=== PATIENT | male | born 2000 | race Caucasian/White ===

== ENCOUNTER 2021-05-12 21:54 | Emergency (ER) | payer OTHER ==
[~2021-05-12] VITALS: Ht 180 cm; Wt 104.0 kg
--- OUTSIDE RECORDS SUMMARY | 2021-05-12 22:00 | XMS REPORT | Encounter Summary ---
Author Author [facility] Organization [facility] Address Unknown Phone Unavailable Care Team Providers Care Mine Technician Name Role Phone Unknown, Unknown Md PCP Unavailable Reason for Referral * Laboratory Services (Routine) Referred By Contact Referred To Contact Status Reason Specialty Diagnoses / Procedures Tegan Betancourt MD [address] [place] [address] [facility] [address], [address] [place] [address] Authorized Lab Diagnoses Stem cell donor P rocedures HLA CLASS 1A 1B 1C AND 2 PHENO HIGH RES Electronically signed by Tegan Betancourt MD at Encounter Details Care Team Description Date Type Department Amy Samayoa RN Stem cell donor (Primary Dx) 03/30/2021 Orders Only [facility] and Mar[facility]: [facility] [address], [address] [place] [id number] Social History Date Tobacco Use Types Packs/Day Years Used Never Assessed Sex Assigned at Date Recorded Not on file documented as of this encounter Progress Notes * Amy Samayoa RN - 03/30/2021 4:32 PM CDT Potential donor was contacted and counseled on methods of HLA typing which inclu de both buccal swabs and blood draws. Reviewed with potential donor that if the y are selected as a donor, an evaluation which includes confirmatory typing, rou prudence labs, viral panel, chest x-ray and ekg as well as a history and physical an d consent. Educated the potential donor on the procedures for both peripheral s tem cell as well as bone marrow harvest donation. Reviewed donor's overall heal th and there are no issues to proceeding with preliminary HLA typing. The cris berrios donor was given time to ask questions and understood that they have the opt ion to decline being a donor. documented in this encounter Plan of Treatment Order Schedule Name Type Priority Associated Diag noses Expected: 03/30/2021 (Approximate), Expi res: 03/30/2022 HLA CLASS 1A 1B 1C AND 2 Blood Bank Routine Stem cell donor PHENO HIGH RES documented as of this encounter Visit Diagnoses Diagnosis Stem cell donor - Primary documented in this encounter
--- OUTSIDE RECORDS SUMMARY | 2021-05-12 22:00 | XMS REPORT | Encounter Summary ---
Author Author [facility] Organization [facility] Address Unknown Phone Unavailable Care Team Providers Care Oral Pathologist Name Role Phone Unknown, Unknown Md PCP Unavailable Encounter Details Care Team Description Date Type Department Amauri Yancey, DO [address] [place] [address] Unspecified donor, stem cells 04/03/2021 Hospital Laboratory: [facility] [address], [address] [place] [phone] Social History Date Tobacco Use Types Packs/Day Years Used Never Assessed Sex Assigned at Date Recorded Not on file documented as of this encounter Discharge Disposition Code Departure Means Destination Disposition Home Home or Self Care documented in this encounter Plan of Treatment Not on filedocumented as of this encounter Procedures Comments Procedure Name Priority Date/Time Associated Diag nosis HC HLA CLASS I TYPING 04/03/2021 Unspecified don or, stem COMPLETE 12:00 PM CDT cells documented in this encounter Results * HLA CLASS 1A 1B 1C AND 2 PHENO HIGH RES (04/03/2021 12:00 PM CDT) HLA Class 1A 1B Report Available in Epic REFERENCE LA B 1C and 2 Pheno TEST PERFORMED BY [facility] [employer] Specimen Narrative Performed At This result has an attachment that is n ot available. Performing Organization Address City/State/ZIP Code [place] Number REFERENCE LAB REFERENCE LAB See results for address. documented in this encounter Visit Diagnoses Diagnosis Unspecified donor, stem cells documented in this encounter
[2021-05-12] MEDS ORDERED: NS IV 1000 ML 1,000 ML IV STA (22:49)
[2021-05-12 22:56] LABS: BILIRUBIN,URINE NEGATIVE (NEGATIVE); CLARITY,URINE CLEAR; COLOR,URINE YELLOW; GLUCOSE, URINE (UA) NEGATIVE (NEGATIVE); KETONES,URINE NEGATIVE (NEGATIVE); LEUKOCYTE ESTERASE ,URINE NEGATIVE (NEGATIVE); NITRITE,URINE NEGATIVE (NEGATIVE); PH,URINE 5.5 (5-9); PROTEIN,URINE NEGATIVE (NEGATIVE)
[2021-05-12] MEDS ORDERED: HOLD METFORMIN - RECEIVED CONTRAST 20 ML VIAL IV SCH (23:00)
[2021-05-12] MEDS ORDERED: NS 100 ML (IVPB) BAG IV ONE (23:00)
[2021-05-12] MEDS ORDERED: IOHEXOL 350 MG/ML 100 ML (OMNIPAQUE 350) VIAL IV ONE (23:00)
[2021-05-12 23:01] LABS: BACTERIA,URINE NEGATIVE /HPF; WBC,URINE RARE /HPF
[2021-05-12 23:08] LABS: HEMATOCRIT 44 % (40-54); HEMOGLOBIN 14.8 g/dL (13.3-17.7); MEAN CORPUSCULAR HEMOGLOBIN 29 pg (25-34); MEAN CORPUSCULAR HGB CONC 34 g/dL (32-36); MEAN CORPUSCULAR VOLUME 87 fL (80-99); MEAN PLATELET VOLUME 9.8 fL (9.0-12.2); PLATELET COUNT 306 10^3/uL (130-400); WHITE BLOOD COUNT 9.9 10^3/uL (4.3-11.0)
[2021-05-12 23:09] LABS: BASOPHILS % (AUTO) 0 % (0-10); EOSINOPHILS # (AUTO) 0.4 10^3/uL (0.0-0.3); EOSINOPHILS % (AUTO) 4 % (0-10); LYMPHOCYTES # (AUTO) 2.8 X 10^3 (1.0-4.0); LYMPHOCYTES % (AUTO) 28 % (12-44); MONOCYTES # (AUTO) 1.1 X 10^3 (0.0-1.0); MONOCYTES % (AUTO) 12 % (0-12); NEUTROPHILS # (AUTO) 5.5 X 10^3 (1.8-7.8); NEUTROPHILS % (AUTO) 56 % (42-75)
[2021-05-12 23:28] LABS: CREATININE SERUM 1.08 MG/DL (0.60-1.30); POTASSIUM 3.7 MMOL/L (3.6-5.0)
[2021-05-12 23:29] LABS: ALBUMIN 4.4 GM/DL (3.2-4.5); BILIRUBIN,TOTAL 0.7 MG/DL (0.1-1.0); CALCIUM 9.1 MG/DL (8.5-10.1); TOTAL PROTEIN 7.3 GM/DL (6.4-8.2)
--- NOTE | 2021-05-12 23:54 | ED GI ---
General Chief Complaint: Abdominal/GI Problems Stated Complaint: ABD PAIN Nursing Triage Note: PT REPORTS TO ER WITH C/O LLQ ABD PAIN X4 DAYS. PT STATES THAT PAIN RADIATES FROM LATERAL TO MEDIAL, IS 4/10 AT THIS TIME AND HAS A SHARP QAULITY. PT WAS SEEN AT ANOTHER FACILITY WITH SAME COMPLAINT WITHOUT RELIEF OF SX. Source of Information: Patient History of Present Illness Date Seen by Provider: May 12, 2021 Time Seen by Provider: 23:54 Initial Comments 21-year-old male presenting with complaints of abdominal pain primarily on the left side. Radiates to his middle of the abdomen. He states this is been going on for 4 to 5 days. Initially he was having fever with it but has not had that for a day or 2. He did get evaluated over the weekend at [facility] and [facility]. He states that the advised him that he had diarrhea and it was viral. They did not do a CT scan. Patient was continued to have symptoms and was concerned he had something more going on. He came here for second opinion. He is having watery diarrhea. He states he has nausea but no vomiting. He has had no dizziness, fainting, syncope, chest pain, cough, shortness of breath, pain with urination. Timing/Duration: 4-5 Days Severity/Quality: Sharp Location: Generalized Abdomen (worse in left flank radiating to middle of abdomen) Activities at Onset: None Associated Symptoms: No Back Pain, No Chest Pain, No Diaphoresis; Fever/Chills, Fatigue; No Headache, No Heartburn; Nausea/Vomiting (nausea but no vomiting); No Shortness of Air, No Swelling/Mass in Abdomen, No Syncope Allergies and Home Medications Allergies Coded Allergies: No Known Drug Allergies (Unverified , 05/12/21) Patient Home Medication List Home Medication List Reviewed: Yes Ciprofloxacin HCl (Ciprofloxacin HCl) 500 Mg Tablet, 500 MG PO BID Prescribed by: TIKA ALANIZ on 05/13/21 0018 Hydrocodone/Acetaminophen (Hydrocodone-Acetamin 5-325 mg) 1 Each Tablet, 1 TAB PO Q6H PRN for PAIN-SEVERE (8-10) Prescribed by: TIKA ALANIZ on 05/13/21 0020 Metoclopramide HCl (Metoclopramide HCl) 10 Mg Tablet, 10 MG PO Q6H PRN for NAUSEA/VOMITING Prescribed by: TIKA ALANIZ on 05/13/2117 Metronidazole (Metronidazole) 500 Mg Tablet, 500 MG PO BID Prescribed by: TIKA JOHNSONRT on 05/13/2117 Review of Systems Review of Systems Constitutional: chills, fever (none in last 2 days) EENTM: No Symptoms Reported Respiratory: No Symptoms Reported Cardiovascular: No Symptoms Reported Gastrointestinal: See HPI Genitourinary: Denies Burning, Denies Drainage, Denies Hematuria Musculoskeletal: no symptoms reported Skin: No rash Psychiatric/Neurological: Denies Headache Past Eavclpi-Wpgszg-Ljljst Hx Patient Social History Tobacco Use?: No Smoking Status: Never a Smoker Use of E-Cig and/or Vaping dev: No Substance use?: No Alcohol Use?: Yes Alcohol type: Hard Liquor Alcohol Frequency: Couple times a week Pt feels they are or have been: No Immunizations Up To Date First/Initial COVID19 Vaccinat: February COVID19 Vaccination Michael: COVID19 Vaccine Assistant Nurse Manager: GWENDOLYN Past Medical History Surgeries: No Physical Exam Vital Signs Vital Signs - First Documented 05/12/21 22:47 Temp 37.1 Pulse 88 Resp 16 B/P (MAP) 140/84 (102) Pulse Ox 99 O2 Delivery Room Air Capillary Refill : Less Than 3 Seconds Height/Weight/BMI Height: '" Weight: lbs. oz. kg; 32.00 BMI Method: General Appearance: WD/WN, no apparent distress HEENT: PERRL/EOMI, pharynx normal Neck: non-tender, full range of motion, supple, normal inspection Respiratory: chest non-tender, lungs clear, normal breath sounds, no respiratory distress, no accessory muscle use Cardiovascular: normal peripheral pulses, regular rate, rhythm Gastrointestinal: normal bowel sounds, soft, no pulsatile mass; No distended, No guarding, No rebound; tenderness (mild diffuse tenderness with palpation. No rebound, guarding) Rectal: deferred Extremities: normal range of motion, non-tender, normal capillary refill Back: no CVA tenderness Neurologic/Psychiatric: pcb designer II-XII nml as tested, alert, oriented x 3 Skin: normal color, warm/dry Images 1 - mild tenderness to pain that is diffuse Progress/Results/Core Measures Results/Orders Lab Results Laboratory Tests Test 05/12/21 22:30 05/12/21 22:55 Range/Units Urine Color YELLOW Urine Clarity CLEAR Urine pH 5.5 5-9 Urine Specific [place] >=1.030 1.016-1.022 Urine Protein NEGATIVE NEGATIVE Urine Glucose (UA) NEGATIVE NEGATIVE Urine Ketones NEGATIVE NEGATIVE Urine Nitrite NEGATIVE NEGATIVE Urine Bilirubin NEGATIVE NEGATIVE Urine Urobilinogen 0.2 < = 1.0 MG/DL Urine Leukocyte Esterase NEGATIVE NEGATIVE Urine RBC (Auto) NEGATIVE NEGATIVE Urine RBC NONE /HPF Urine WBC RARE /HPF Urine Squamous Epithelial Cells NONE /HPF Urine Crystals NONE /LPF Urine Bacteria NEGATIVE /HPF Urine Casts NONE /LPF Urine Mucus NEGATIVE /LPF Urine Culture Indicated NO White Blood Count 9.9 4.3-11.0 10^3/uL Red Blood Count 5.03 4.30-5.52 10^6/uL Hemoglobin 14.8 13.3-17.7 g/dL Hematocrit 44 40-54 % Mean Corpuscular Volume 87 80-99 fL Mean Corpuscular Hemoglobin 29 25-34 pg Mean Corpuscular Hemoglobin Concent 34 32-36 g/dL Red Cell Distribution Width 12.0 10.0-14.5 % Platelet Count 306 130-400 10^3/uL Mean Platelet Volume 9.8 9.0-12.2 fL Immature Granulocyte % (Auto) 0 % Neutrophils (%) (Auto) 56 42-75 % Lymphocytes (%) (Auto) 28 12-44 % Monocytes (%) (Auto) 12 0-12 % Eosinophils (%) (Auto) 4 0-10 % Basophils (%) (Auto) 0 0-10 % Neutrophils # (Auto) 5.5 1.8-7.8 X 10^3 Lymphocytes # (Auto) 2.8 1.0-4.0 X 10^3 Monocytes # (Auto) 1.1 H 0.0-1.0 X 10^3 Eosinophils # (Auto) 0.4 H 0.0-0.3 10^3/uL Basophils # (Auto) 0.0 0.0-0.1 10^3/uL Immature Granulocyte # (Auto) 0.0 0.0-0.1 10^3/uL Sodium Level 142 135-145 MMOL/L Potassium Level 3.7 3.6-5.0 MMOL/L Chloride Level 106 98-107 MMOL/L Carbon Dioxide Level 26 21-32 MMOL/L Anion Gap 10 5-14 MMOL/L Blood Urea Nitrogen 11 7-18 MG/DL Creatinine 1.08 0.60-1.30 MG/DL Estimat Glomerular Filtration Rate 87 BUN/Creatinine Ratio 10 Glucose Level 108 H 70-105 MG/DL Calcium Level 9.1 8.5-10.1 MG/DL Corrected Calcium 8.8 8.5-10.1 MG/DL Total Bilirubin 0.7 0.1-1.0 MG/DL Aspartate Amino Transf (AST/SGOT) 35 H 5-34 U/L Alanine Aminotransferase (ALT/SGPT) 53 0-55 U/L Alkaline Phosphatase 97 40-136 U/L Total Protein 7.3 6.4-8.2 GM/DL Albumin 4.4 3.2-4.5 GM/DL Lipase 15 8-78 U/L My Orders Orders - TIKA ALANIZ MD Comprehensive Metabolic Panel (05/12/21 22:49) Lipase (05/12/21 22:49) Ua Culture If Indicated (05/12/21 22:49) Ed Iv/Invasive Line Start (05/12/21 22:49) Cbc With Automated Diff (05/12/21 22:49) Ct Abdomen/Pelvis W (05/12/21 22:49) Ns Iv 1000 Ml (Sodium Chloride 0.9%) (05/12/21 22:49) Iohexol Injection (Omnipaque 350 Mg/Ml 1 (05/12/21 23:00) Di Iv Start (Assessment) .IV start (05/12/21 22:52) Received Contrast (Hold Metformin- Contr (05/12/21 23:00) Ns (Ivpb) (Sodium Chloride 0.9% Ivpb Bag (05/12/21 23:00) Metronidazole Tablet (Flagyl Tablet) (05/13/21 00:10) Ciprofloxacin Tablet (Cipro Tablet) (05/13/21 00:10) Rx-Dicyclomine Capsule (Rx-Bentyl Capsul (05/13/21 00:15) Rx-Hydrocodone/Apap 5-325 Mg (Rx-Vicodin (05/13/21 00:15) Medications Given in ED Current Medications Medications Dose Ordered Sig/Nafisa Route Start Time Stop Time Status Last Admin Dose Admin Acetaminophen/ Hydrocodone Bitart 1 ea Q6H PRN PO 05/13/21 00:15 05/13/21 00:34 DC 05/13/21 00:18 1 EA Dicyclomine HCl 10 mg Q6H PRN PO 05/13/21 00:15 05/13/21 00:34 DC 05/13/21 00:18 10 MG Iohexol 100 ml ONCE ONCE IV 05/12/21 23:00 05/12/21 23:08 DC 05/12/21 23:19 100 ML Sodium Chloride 100 ml ONCE ONCE IV 05/12/21 23:00 05/12/21 23:08 DC 05/12/21 23:19 80 ML Vital Signs/I&O 05/12/21 05/13/21 22:47 00:25 Temp 37.1 Pulse 88 88 Resp 16 16 B/P (MAP) 140/84 (102) 143/77 Pulse Ox 99 99 O2 Delivery Room Air Room Air Blood Pressure Mean: 102 Progress Progress Note #1: Progress Note As patient has already had further work-up at another facility but was continuing to have symptoms well obtain labs as well as urine and CT scan of the abdomen and pelvis. Give IV fluids for hydration. Differential diagnosis includes diverticulitis, appendicitis, cholecystitis, col itis, gastroenteritis Progress Note #2: Progress Note Labs are stable without acute significant normality. He does have elevated specific gravity greater than 1.030. This would go along with some dehydration. He was given IV fluids here in the ED and reported he was feeling better. The CT scan showed some mild diffuse inflammation of the colon for some colitis. There is no definite diverticulitis or abscess. Counseled patient and family on results. Will treat with Bentyl for cramping abdominal pain, hydrocodone for severe pain, Cipro and Flagyl for possible colitis and infection. Diagnostic Imaging Diagonstic Imaging: CT Plain Films/CT/US/NM/MRI: abdomen, pelvis Comments Mild diffuse colonic thickening which may be underdistention, chronic versus colitis. No bowel obstruction or diverticulitis. Read by radiologist Puneet Michel MD at [phone] and faxed at [phone] Reviewed: Reviewed by Me Departure Impression Primary Impression: Colitis Additional Impression: Watery diarrhea Disposition: 01 HOME, SELF-CARE Condition: Stable Departure-Patient Inst. Decision time for Depature: 00:13 Referrals: NO,LOCAL PHYSICIAN (PCP) [place] Care Phys[place] [facility] [place]ructions: Diarrhea, Adult ED, Colitis (DC) Add. Discharge Instructions: Take antibiotic to treat for inflammation and infection to the colon. Take a probiotic to help with replacing the good bacteria in your gut. Use Bentyl (Dicyclomine) to treat for abdominal pain/cramping. For severe pain you could try the Hydrocodone with Acetaminophen. Use Reglan (Metoclopramide) for nausea. Make sure you are drinking plenty of water and fluids. Check back with clinic for continued concerns or if not improving. All discharge instructions reviewed with patient and/or family. Voiced understanding. Scripts Hydrocodone/Acetaminophen (Hydrocodone-Acetamin 5-325 mg) 1 Each Tablet 1 TAB PO Q6H PRN for PAIN-SEVERE (8-10) for 3 Days, #12 TAB 0 Refills Prov: TIKA ALANIZ MD 05/13/21 Metoclopramide HCl (Metoclopramide HCl) 10 Mg Tablet 10 MG PO Q6H PRN for NAUSEA/VOMITING for 5 Days, #20 TAB 0 Refills Prov: TIKA ALANIZ MD 05/13/21 Ciprofloxacin HCl (Ciprofloxacin HCl) 500 Mg Tablet 500 MG PO BID for Colitis for 7 Days, #14 TAB 0 Refills Prov: TIKA ALANIZ MD 05/13/21 Metronidazole (Metronidazole) 500 Mg Tablet 500 MG PO BID for Colitis for 7 Days, #14 TAB 0 Refills Prov: TIKA ALANIZ MD 05/13/21 TIKA ALANIZ MD May 12, 2021 23:54
[2021-05-13] MEDS ORDERED: CIPROFLOXACIN 500 MG (CIPRO) TABLET PO STA (00:10)
[2021-05-13] MEDS ORDERED: metroNIDAZOLE 500 MG (FLAGYL) TAB PO STA (00:10)
[2021-05-13] MEDS ORDERED: RX-DICYCLOMINE 10 MG (BENTYL) CAP PPK#4 PO PRN (00:15)
[2021-05-13] MEDS ORDERED: CIPR500T5 PO (00:18)
[2021-05-13] MEDS ORDERED: METR-145 PO (00:18)
[2021-05-13] MEDS ORDERED: ACHD5005 PO (00:18)
[2021-05-13] MEDS ORDERED: MTC10T PO (00:18)
[2021-05-13 00:25] VITALS: BP 143/77
--- NOTE | 2021-05-13 06:13 | Diagnostic Imaging Report ---
EXAMINATION: CT abdomen and pelvis with intravenous contrast. TECHNIQUE: Multiple contiguous axial images were obtained through the abdomen and pelvis after the uneventful administration of intravenous contrast. All CT scans use one or more of the following dose optimizing techniques: automated exposure control, MA and/or KvP adjustment based on patient size and exam type or iterative reconstruction. HISTORY: Left-sided abdominal pain. Fever and diarrhea. COMPARISON: None available. FINDINGS: The heart is unremarkable. The included lung bases are clear. The liver, spleen, pancreas, adrenal glands, and kidneys have a normal appearance. The gallbladder surgically absent. There is no pathologically enlarged mesenteric or retroperitoneal adenopathy. The bowel loops are nondilated. The colon is decompressed. The appendix is visualized in the right lower quadrant and has a normal appearance. There is no free fluid or free air. No acute osseous abnormalities. Ureters and bladder are grossly normal. There is no free air, loculated collection, or adenopathy in the pelvis. IMPRESSION: 1. The colon is decompressed which limits evaluation of the colon wall. Underlying edema or inflammation may be present. No free fluid or free air. Normal appendix. Agree with overnight report. Dictated by: Dictated on workstation # [id number]
== END 2021-05-13 00:25 | disposition home or self-care (01) ==
LOC: ER FS 21:56
DX: K52.9 Noninfective gastroenteritis and colitis, unspecified (principal)
CPT/HCPCS: 36415; 74177; 80053; 81000; 83690; 85025